=== PATIENT | female | born 1980 | race American Indian/Alaskan Native ===

== ENCOUNTER 2018-01-14 20:47 | Emergency (ER) | payer OTHER ==
[2018-01-15] MEDS ORDERED: MOTRIN PO ONE (01:51)
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
[2018-01-15 06:35] VITALS: BP 100/60
== END 2018-01-15 02:45 | disposition home or self-care (01) ==
LOC: ED 20:47
DX: M54.5 Low back pain (principal); L02.412 Cutaneous abscess of left axilla; V89.2XXA Person injured in unspecified motor-vehicle accident, traffic, initial encounter; Y93.89 Activity, other specified; Y92.488 Other paved roadways as the place of occurrence of the external cause; Y99.8 Other external cause status
CPT/HCPCS: 99282